=== PATIENT | female | born 1985 | race African-American/Black ===

== ENCOUNTER 2021-04-06 09:17 | Emergency (ER) | payer MEDICAID ==
[~2021-04-06] VITALS: Ht 157.5 cm; Wt 77.5 kg
[2021-04-06] MEDS ORDERED: albuterol (09:40)
[2021-04-06] MEDS ORDERED: ONDANSETRON 4MG ODT PO STA (10:27)
[2021-04-06] MEDS ORDERED: ACETAMINOPHEN 325MG TABLET PO STA (10:27)
[2021-04-06] MEDS ORDERED: SODIUM CHLORIDE 0.9% 1,000 ML IV ONE (11:00)
[2021-04-06 11:22] LABS: CLARITY URINE CLOUDY (CLEAR); COLOR URINE DARK YELLOW (YELLOW); KETONES URINE 2+ (NEGATIVE); LEUKOCYTE ESTERASE URINE 2+ (NEGATIVE); NITRITE URINE POSITIVE (NEGATIVE); OCCULT BLOOD URINE NEGATIVE (NEGATIVE); PH URINE 6.5 (4.5-8.0); PROTEIN URINE 3+ (NEGATIVE); SPECIFIC GRAVITY URINE 1.035 (1.005-1.030)
[2021-04-06 11:24] LABS: BASOPHILS % 0.5 % (0.0-2.0); HEMOGLOBIN. 14.6 g/dL (12.0-16.0); LYMPHOCYTES % 8.3 % (20.0-50.0); MEAN CORPUSCULAR HEMOGLOBIN 34.8 pg (28.0-32.0); MEAN CORPUSCULAR VOLUME 102.4 fL (81.0-99.0); MEAN PLATELET VOLUME 9.4 fl (7.4-10.4); MONOCYTES % 4.4 % (2.0-8.0); NEUTROPHILS % 86.8 % (40.0-76.0); PLATELET 205 x1000/uL (130-400); RED CELL DISTRIBUTION WIDTH 13.1 % (11.6-14.6)
[2021-04-06 11:27] LABS: CHLORIDE 98 mEq/L (98-107)
[2021-04-06] MEDS ORDERED: NITR-87 MT (11:50)
[2021-04-06] MEDS ORDERED: ONDA4TAB11 PO (11:50)
[2021-04-06] MEDS ORDERED: BENZ-16 MT (11:50)
[2021-04-06] MEDS ORDERED: ALBU6.7H9 INH (11:50)
[2021-04-06 13:00] VITALS: BP 112/72
== END 2021-04-06 13:14 | disposition home or self-care (01) ==
LOC: ER 09:27
DX: U07.1 COVID-19 (principal); N39.0 Urinary tract infection, site not specified; J06.9 Acute upper respiratory infection, unspecified; J45.909 Unspecified asthma, uncomplicated; Z88.0 Allergy status to penicillin
CPT/HCPCS: 36415; 71045; 80048; 81003; 81025; 83690; 85025; 93005; 96360; 99285; C9803; J7030; Q0162; U0003; U0005; Z7610

== ENCOUNTER 2021-08-03 09:00 | Emergency (ER) | payer MEDICAID, OTHER ==
[~2021-08-03] VITALS: Ht 167.6 cm; Wt 82.0 kg
[~2021-08-03 09:00] MED LIST: ALBU6.7H9 INH; BENZ-16 MT; NITR-87 MT; ONDA4TAB11 PO; albuterol
[2021-08-03 09:03] VITALS: BP 141/108
== END 2021-08-03 09:27 | disposition left against medical advice (07) ==
LOC: ER 09:00
DX: Z53.21 Procedure and treatment not carried out due to patient leaving prior to being seen by health care provider (principal)

== ENCOUNTER 2021-08-15 18:04 | Emergency (ER) | payer OTHER ==
[~2021-08-15] VITALS: Ht 157.5 cm; Wt 77.0 kg
[2021-08-15 18:46] VITALS: BP 127/83
[2021-08-15] MEDS ORDERED: BENZ-16 MT (19:36)
[2021-08-15] MEDS ORDERED: ALBU6.7H9 INH (20:25)
== END 2021-08-15 19:56 | disposition home or self-care (01) ==
LOC: ER 18:04
DX: R05.9 Cough, unspecified (principal); B34.9 Viral infection, unspecified; J45.909 Unspecified asthma, uncomplicated; Z88.0 Allergy status to penicillin; Z20.822 Contact with and (suspected) exposure to COVID-19
CPT/HCPCS: 71045; 87426; 93005; 99285

== ENCOUNTER 2021-09-23 13:40 | Emergency (ER) | payer MEDICAID ==
[~2021-09-23] VITALS: Ht 157.5 cm; Wt 70.0 kg
[2021-09-23] MEDS ORDERED: AZITHROMYCIN 500 MG TABLET PO ONE (16:45)
[2021-09-23] MEDS ORDERED: LIDOCAINE HCL 1% 20ML VIAL (Pyxis) INJ INFIL ONE (16:45)
[2021-09-23] MEDS ORDERED: FAMOTIDINE 20MG TABLET PO ONE (16:45)
[2021-09-23] MEDS ORDERED: CEFTRIAXONE SODIUM 500 MG/VIAL IM ONE (16:45)
[2021-09-23] MEDS ORDERED: PREDNISONE 20MG TABLET PO STA (16:50)
[2021-09-23] MEDS ORDERED: IPRATROPIUM BROMIDE (0.02%) 0.5MG/2.5ML NEB HHN STA (16:50)
[2021-09-23] MEDS ORDERED: ALBUTEROL (0.083%) 2.5MG/3ML NEB HHN STA (16:50)
[2021-09-23] MEDS ORDERED: ONDANSETRON 4MG ODT PO ONE (17:00)
[2021-09-23 17:10] LABS: CLARITY URINE CLOUDY (CLEAR); COLOR URINE DARK YELLOW (YELLOW); KETONES URINE TRACE (NEGATIVE); LEUKOCYTE ESTERASE URINE 1+ (NEGATIVE); NITRITE URINE POSITIVE (NEGATIVE); OCCULT BLOOD URINE NEGATIVE (NEGATIVE); PROTEIN URINE 1+ (NEGATIVE); SPECIFIC GRAVITY URINE 1.024 (1.005-1.030)
[2021-09-23 17:37] LABS: *AMPHETAMINES SCREEN URINE NEGATIVE (NEGATIVE); *BARBITURATES SCREEN URINE NEGATIVE (NEGATIVE); *BENZODIAZEPINES SCREEN URINE NEGATIVE (NEGATIVE); METHADONE URINE SCREEN NEGATIVE (NEGATIVE); OPIATES URINE SCREEN NEGATIVE (NEGATIVE); PHENCYCLIDINE URINE SCREEN NEGATIVE (NEGATIVE)
[2021-09-23 17:38] LABS: *COCAINE SCREEN URINE NEGATIVE (NEGATIVE); CANNABINOID URINE SCREEN PRESUMTIVE POSITIVE (NEGATIVE)
[2021-09-23 18:08] LABS: BASOPHILS % 0.9 % (0.0-2.0); EOSINOPHILS % 0.1 % (0.0-5.0); HEMATOCRIT. 39.2 % (36.0-48.0); HEMOGLOBIN. 13.5 g/dL (12.0-16.0); LYMPHOCYTES % 20.3 % (20.0-50.0); MEAN CORPUSCULAR HEMOGLOBIN 34.5 pg (28.0-32.0); MEAN CORPUSCULAR VOLUME 100.1 fL (81.0-99.0); MEAN PLATELET VOLUME 8.4 fl (7.4-10.4); MONOCYTES % 5.8 % (2.0-8.0); NEUTROPHILS % 72.9 % (40.0-76.0); PLATELET 389 x1000/uL (130-400); RED BLOOD CELL COUNT 3.91 mill/uL (4.2-5.4); RED CELL DISTRIBUTION WIDTH 14.1 % (11.6-14.6)
[2021-09-23 18:12] LABS: CHLORIDE 102 mEq/L (98-107)
[2021-09-23 18:18] LABS: ETHANOL BLOOD 259 mg/dL
[2021-09-23] MEDS ORDERED: NITR-87 MT (19:13)
[2021-09-23] MEDS ORDERED: ONDA4TAB11 PO (19:13)
[2021-09-23] MEDS ORDERED: ALBU6.7H15 INH (19:13)
[2021-09-23] MEDS ORDERED: P20 MT (19:13)
[2021-09-23 20:44] VITALS: BP 127/73
[2021-09-29 04:08] LABS: NEISSERIA GONORRHOEAE NAA Positive (Negative)
== END 2021-09-23 21:06 | disposition home or self-care (01) ==
LOC: ER 13:40
DX: R10.9 Unspecified abdominal pain (principal); R07.9 Chest pain, unspecified; J45.901 Unspecified asthma with (acute) exacerbation; N39.0 Urinary tract infection, site not specified; F10.129 Alcohol abuse with intoxication, unspecified; Y90.8 Blood alcohol level of 240 mg/100 ml or more; Z88.0 Allergy status to penicillin
CPT/HCPCS: 36415; 71045; 80053; 80305; 80320; 81003; 81025; 83690; 85025; 87491; 87591; 93005; 94640; 96372; 99285; J0696; J3490; J7512; Q0162; Z7610; G0480

== ENCOUNTER 2022-05-26 16:10 | Emergency (ER) | payer MEDICAID, OTHER ==
[~2022-05-26] VITALS: Ht 167.6 cm; Wt 77.0 kg
[~2022-05-26 16:10] MED LIST changes: +ALBU6.7H15 INH; +ALBU6.7H3 INH; -ALBU6.7H9 INH; +P20 MT
[2022-05-26 16:14] VITALS: BP 116/74
== END 2022-05-26 21:16 | disposition left against medical advice (07) ==
LOC: ER 16:10
DX: Z53.21 Procedure and treatment not carried out due to patient leaving prior to being seen by health care provider (principal); J45.909 Unspecified asthma, uncomplicated; Z88.0 Allergy status to penicillin; Z90.49 Acquired absence of other specified parts of digestive tract

== ENCOUNTER 2022-05-26 22:41 | Inpatient (IN) | payer MEDICAID, OTHER ==
[~2022-05-26] VITALS: Ht 157.5 cm; Wt 59.6 kg
[2022-05-27 01:11] LABS: BASOPHILS % 0.6 % (0.0-2.0); EOSINOPHILS % 1.3 % (0.0-5.0); HEMOGLOBIN. 10.8 g/dL (12.0-16.0); LYMPHOCYTES % 22.6 % (20.0-50.0); MEAN CORPUSCULAR HEMOGLOBIN 37.8 pg (28.0-32.0); MEAN CORPUSCULAR VOLUME 108.8 fL (81.0-99.0); MEAN PLATELET VOLUME 9.3 fl (7.4-10.4); MONOCYTES % 8.3 % (2.0-8.0); NEUTROPHILS % 67.2 % (40.0-76.0); PLATELET 196 x1000/uL (130-400); RED BLOOD CELL COUNT 2.85 mill/uL (4.2-5.4); RED CELL DISTRIBUTION WIDTH 17.9 % (11.6-14.6)
[2022-05-27 01:21] LABS: CHLORIDE 106 mEq/L (98-107)
[2022-05-27] MEDS ORDERED: KETOROLAC 30MG/ML VIAL IV STA (01:34)
[2022-05-27] MEDS ORDERED: SODIUM CHLORIDE 0.9% 1,000 ML IV ONE (01:45)
[2022-05-27] MEDS ORDERED: MAGNESIUM 2 G PREMIX 50 ML IV ONE (03:15)
[2022-05-27] MEDS ORDERED: KCL 20MEQ/100ML PREMIX 100 ML IV ONE (03:15)
[2022-05-27] MEDS ORDERED: POTASSIUM CHLORIDE 20MEQ TABLET SR PO ONE (03:15)
[2022-05-27] MEDS ORDERED: POTASSIUM CHLORIDE 20MEQ TABLET SR PO NR ×2 (03:45→19:30)
[2022-05-27 09:00] VITALS: BP_SYST 125; BP_DIAS 29; BP_DIAS 39
[2022-05-27 09:01] LABS: CLARITY URINE CLEAR (CLEAR); COLOR URINE DARK YELLOW (YELLOW); KETONES URINE NEGATIVE (NEGATIVE); LEUKOCYTE ESTERASE URINE TRACE (NEGATIVE); NITRITE URINE NEGATIVE (NEGATIVE); OCCULT BLOOD URINE 3+ (NEGATIVE); PH URINE 7.5 (4.5-8.0); PROTEIN URINE 1+ (NEGATIVE); SPECIFIC GRAVITY URINE 1.007 (1.005-1.030)
[2022-05-27 12:00] VITALS: BP 91/57
[2022-05-27] MEDS: ENOXAPARIN 40MG/0.4ML SYR SUBCUT SCH ×2 (12:00→12:39)
[2022-05-27] MEDS ORDERED: DOCUSATE SODIUM 100MG CAPSULE PO PRN (12:00)
[2022-05-27] MEDS ORDERED: IPRATROPIUM/ALBUTEROL 0.5-3(2.5)MG/3ML NEB HHN PRN (12:00)
[2022-05-27] MEDS ORDERED: CLONIDINE 0.1MG TABLET PO PRN (12:00)
[2022-05-27] MEDS ORDERED: ACETAMINOPHEN 325MG TABLET PO PRN (12:00)
[2022-05-27] MEDS ORDERED: DEXT 5%/0.9% NACL 1,000 ML IV SCH (12:00)
[2022-05-27] MEDS ORDERED: GUAIFENESIN 200MG/10ML SUGAR FREE UDC PO PRN (12:00)
[2022-05-27] MEDS ORDERED: NALOXONE HCL 0.4MG/ML VIAL IV PRN (12:30)
[2022-05-27] MEDS: ONDANSETRON HCL 4MG/2ML INJ IV PRN ×2 (12:39→20:02)
[2022-05-27] MEDS: HYDROCODONE/ACETAMINOPHEN 5/325MG TABLET PO PRN ×2 (13:21→21:18)
[2022-05-27] MEDS: SODIUM CHLORIDE 0.45% 1,000 ML IV SCH ×2 (14:57→19:58)
[2022-05-27 16:00] VITALS: BP 105/65
[2022-05-27 18:16] LABS: BASOPHILS % 0.3 % (0.0-2.0); EOSINOPHILS % 0.5 % (0.0-5.0); HEMATOCRIT. 28.7 % (36.0-48.0); HEMOGLOBIN. 9.6 g/dL (12.0-16.0); LYMPHOCYTES % 10.6 % (20.0-50.0); MEAN CORPUSCULAR HEMOGLOBIN 37.7 pg (28.0-32.0); MEAN CORPUSCULAR VOLUME 112.5 fL (81.0-99.0); MEAN PLATELET VOLUME 9.8 fl (7.4-10.4); MONOCYTES % 5.5 % (2.0-8.0); NEUTROPHILS % 83.1 % (40.0-76.0); PLATELET 184 x1000/uL (130-400); RED BLOOD CELL COUNT 2.55 mill/uL (4.2-5.4)
[2022-05-27 18:51] LABS: CHLORIDE 108 mEq/L (98-107)
[2022-05-27 19:01] LABS: PHOSPHORUS 2.7 mg/dL (2.5-4.9)
[2022-05-27 20:00] VITALS: BP 106/72
[2022-05-27] MEDS: MAGNESIUM/ALUMINUM HYDROXIDE/SIMETHICONE 30ML UDC PO PRN (21:17)
[2022-05-27 22:14] LABS: VITAMIN B12 SERUM 1390 pg/mL (211-911)
[2022-05-28 00:05] VITALS: BP 107/76
[2022-05-28] MEDS: DIPHENHYDRAMINE 50MG/ML VIAL IV PRN ×2 (02:47→23:55)
[2022-05-28] MEDS: SODIUM CHLORIDE 0.45% 1,000 ML IV SCH ×2 (02:51→10:15)
[2022-05-28 04:00] VITALS: BP 108/74
[2022-05-28 05:17] LABS: PLATELET ESTIMATE NORMAL
[2022-05-28 08:17] LABS: BASOPHILS % 0.4 % (0.0-2.0); EOSINOPHILS % 1.1 % (0.0-5.0); HEMATOCRIT. 26.5 % (36.0-48.0); HEMOGLOBIN. 8.7 g/dL (12.0-16.0); LYMPHOCYTES % 17.6 % (20.0-50.0); MEAN CORPUSCULAR HEMOGLOBIN 38.6 pg (28.0-32.0); MEAN CORPUSCULAR VOLUME 117.2 fL (81.0-99.0); MONOCYTES % 6.6 % (2.0-8.0); NEUTROPHILS % 74.3 % (40.0-76.0); PLATELET 152 x1000/uL (130-400); RED BLOOD CELL COUNT 2.26 mill/uL (4.2-5.4); RED CELL DISTRIBUTION WIDTH 18.9 % (11.6-14.6)
[2022-05-28 09:16] LABS: CHLORIDE 106 mEq/L (98-107)
[2022-05-28 09:34] LABS: HDL CHOLESTEROL 13 mg/dL (40-59); LDL CHOLESTEROL 98 mg/dL (5-100); T4 FREE 1.17 ng/dL (0.76-1.46)
[2022-05-28 10:00] LABS: HEPATITIS B SURFACE ANTIGEN NEGATIVE
[2022-05-28] MEDS: ONDANSETRON HCL 4MG/2ML INJ IV PRN ×2 (11:00→17:56)
[2022-05-28] MEDS: MAGNESIUM/ALUMINUM HYDROXIDE/SIMETHICONE 30ML UDC PO PRN (11:00)
[2022-05-28] MEDS: HYDROCODONE/ACETAMINOPHEN 5/325MG TABLET PO PRN ×3 (11:01→23:55)
[2022-05-28] MEDS ORDERED: POTASSIUM CHLORIDE 20MEQ TABLET SR PO NR (11:15)
[2022-05-28 12:00] VITALS: BP 112/50
[2022-05-28] MEDS ORDERED: KCL 20MEQ/100ML PREMIX 100 ML IV SCH (12:00)
[2022-05-28] MEDS: ENOXAPARIN 40MG/0.4ML SYR SUBCUT SCH (12:10)
[2022-05-28] MEDS ORDERED: POTASSIUM CHLORIDE 20MEQ TABLET SR PO SCH (13:15)
[2022-05-28 16:00] VITALS: BP 115/58
[2022-05-28] MEDS: FOLIC ACID 1MG TABLET PO SCH (17:05)
[2022-05-28 20:00] VITALS: BP 101/65
[2022-05-29] VITALS: BP 120/75
[2022-05-29 04:00] VITALS: BP 126/80
[2022-05-29] MEDS: FOLIC ACID 1MG TABLET PO SCH (07:50)
[2022-05-29] MEDS: ONDANSETRON HCL 4MG/2ML INJ IV PRN ×2 (07:50→21:00)
[2022-05-29] MEDS: DIPHENHYDRAMINE 50MG/ML VIAL IV PRN (07:50)
[2022-05-29 08:00] VITALS: BP 109/76
[2022-05-29] MEDS ORDERED: POTASSIUM CHLORIDE 20MEQ TABLET SR PO SCH (08:00)
[2022-05-29 12:00] VITALS: BP 108/73
[2022-05-29] MEDS: ENOXAPARIN 40MG/0.4ML SYR SUBCUT SCH (12:55)
[2022-05-29] MEDS: SERTRALINE HCL 25MG TABLET PO SCH (12:55)
[2022-05-29] MEDS: MAGNESIUM/ALUMINUM HYDROXIDE/SIMETHICONE 30ML UDC PO PRN (14:45)
[2022-05-29 16:00] VITALS: BP 95/54
[2022-05-29 20:00] VITALS: BP 101/65
[2022-05-29] MEDS: RISPERIDONE 1MG TABLET PO SCH ×2 (21:48→22:04)
[2022-05-29 22:02] LABS: CHLORIDE 106 mEq/L (98-107); HEMOGLOBIN 8.6 g/dL (12.0-16.0); RED BLOOD CELL COUNT 2.23 mill/uL (4.2-5.4)
[2022-05-29 22:06] LABS: MEAN CORPUSCULAR HEMOGLOBIN 38.5 pg (28.0-32.0); MEAN CORPUSCULAR VOLUME 112.2 fL (81.0-99.0); PLATELET 169 x1000/uL (130-400); RED CELL DISTRIBUTION WIDTH 17.6 % (11.6-14.6)
[2022-05-29] MEDS: HYDROCODONE/ACETAMINOPHEN 5/325MG TABLET PO PRN (23:08)
[2022-05-30] VITALS: BP 118/74
[2022-05-30] MEDS: DIPHENHYDRAMINE 50MG/ML VIAL IV PRN ×2 (02:19→08:28)
[2022-05-30 04:00] VITALS: BP 112/63
[2022-05-30 08:00] VITALS: BP 120/79
[2022-05-30] MEDS ORDERED: POTASSIUM CHLORIDE 20MEQ TABLET SR PO NR ×2 (08:15)
[2022-05-30] MEDS: FOLIC ACID 1MG TABLET PO SCH (08:27)
[2022-05-30] MEDS: SERTRALINE HCL 25MG TABLET PO SCH (08:28)
[2022-05-30 11:00] LABS: HEMATOCRIT 25.5 % (36.0-48.0); HEMOGLOBIN 8.5 g/dL (12.0-16.0); MEAN CORPUSCULAR HEMOGLOBIN 38.1 pg (28.0-32.0); MEAN CORPUSCULAR VOLUME 114.4 fL (81.0-99.0); PLATELET 160 x1000/uL (130-400); RED BLOOD CELL COUNT 2.23 mill/uL (4.2-5.4); RED CELL DISTRIBUTION WIDTH 17.7 % (11.6-14.6)
[2022-05-30] MEDS: ONDANSETRON HCL 4MG/2ML INJ IV PRN ×2 (11:31→20:51)
[2022-05-30] MEDS: ENOXAPARIN 40MG/0.4ML SYR SUBCUT SCH (11:32)
[2022-05-30 12:00] VITALS: BP 110/72
[2022-05-30 13:40] LABS: CHLORIDE 105 mEq/L (98-107); PHOSPHORUS 1.1 mg/dL (2.5-4.9)
[2022-05-30 16:00] VITALS: BP 100/65
[2022-05-30] MEDS: POTASSIUM-SODIUM PHOSPHATE POWDER PACKET PO SCH ×2 (16:48→17:01)
[2022-05-30] MEDS: MAGNESIUM/ALUMINUM HYDROXIDE/SIMETHICONE 30ML UDC PO PRN (17:00)
[2022-05-30 20:00] VITALS: BP 103/64
[2022-05-30] MEDS: RISPERIDONE 1MG TABLET PO SCH (20:50)
[2022-05-31] VITALS: BP 101/68
[2022-05-31] MEDS: DIPHENHYDRAMINE 50MG/ML VIAL IV PRN (01:43)
[2022-05-31 04:00] VITALS: BP 107/61
[2022-05-31 08:00] VITALS: BP 99/53
[2022-05-31] MEDS ORDERED: SERTRALINE HCL 25MG TABLET PO SCH (09:00)
[2022-05-31] MEDS: FOLIC ACID 1MG TABLET PO SCH (09:05)
[2022-05-31] MEDS: POTASSIUM-SODIUM PHOSPHATE POWDER PACKET PO SCH (09:05)
[2022-05-31 12:00] VITALS: BP 102/70
[2022-05-31] MEDS: MAGNESIUM/ALUMINUM HYDROXIDE/SIMETHICONE 30ML UDC PO PRN (12:37)
[2022-05-31] MEDS: ENOXAPARIN 40MG/0.4ML SYR SUBCUT SCH (12:37)
[2022-05-31 12:38] VITALS: BP 99/53
[2022-05-31] MEDS: ONDANSETRON HCL 4MG/2ML INJ IV PRN (12:38)
[2022-05-31] MEDS: HYDROCODONE/ACETAMINOPHEN 5/325MG TABLET PO PRN (12:38)
[2022-06-01] MEDS ORDERED: GABAPETIN (02:46)
[2022-06-01] MEDS ORDERED: trazodone (02:47)
[2022-06-01] MEDS ORDERED: colace (02:47)
== END 2022-05-31 15:40 | disposition left against medical advice (07) | DRG 282 ==
LOC: ER 22:41 → EDBEDREQ 05-27 04:26 → ENRESERV 05-27 06:59 → 7WST 05-27 08:36
PROVIDERS: ADMIT Internal Medicine; ATTEND Internal Medicine
DX: K85.90 Acute pancreatitis without necrosis or infection, unspecified (principal); R65.11 Systemic inflammatory response syndrome (SIRS) of non-infectious origin with acute organ dysfunction; E87.20 Acidosis, unspecified; E44.0 Moderate protein-calorie malnutrition; D53.9 Nutritional anemia, unspecified; E87.6 Hypokalemia; E83.42 Hypomagnesemia; R79.89 Other specified abnormal findings of blood chemistry; J45.909 Unspecified asthma, uncomplicated; I10 Essential (primary) hypertension; D72.829 Elevated white blood cell count, unspecified; R74.01 Elevation of levels of liver transaminase levels; G62.9 Polyneuropathy, unspecified; F41.9 Anxiety disorder, unspecified; F17.200 Nicotine dependence, unspecified, uncomplicated; F10.10 Alcohol abuse, uncomplicated; F31.30 Bipolar disorder, current episode depressed, mild or moderate severity, unspecified; Z53.20 Procedure and treatment not carried out because of patient's decision for unspecified reasons; Z91.14 Patient's other noncompliance with medication regimen; Z68.24 Body mass index [BMI] 24.0-24.9, adult; Z88.0 Allergy status to penicillin; Z88.8 Allergy status to other drugs, medicaments and biological substances; Z79.899 Other long term (current) drug therapy
CPT/HCPCS: 36415; 71045; 74176; 80048; 80053; 80061; 80076; 81003; 82248; 82607; 82746; 82977; 83540; 83550; 83605; 83735; 84100; 84132; 84145; 84439; 84443; 84481; 84484; 85025; 85027; 86705; 86709; 86803; 87340; 93005; 97162; 97166; 99285; J1200; J1650; J1885; J2405; J3475; J3480; J7030

== ENCOUNTER 2022-05-31 15:54 | Inpatient (IN) | payer OTHER ==
[~2022-05-31] VITALS: Ht 157.5 cm; Wt 59.0 kg
[2022-05-31 19:31] LABS: BASOPHILS % 0.3 % (0.0-2.0); EOSINOPHILS % 0.8 % (0.0-5.0); HEMATOCRIT. 26.3 % (36.0-48.0); HEMOGLOBIN. 8.5 g/dL (12.0-16.0); LYMPHOCYTES % 18.1 % (20.0-50.0); MEAN CORPUSCULAR HEMOGLOBIN 38.9 pg (28.0-32.0); MEAN CORPUSCULAR VOLUME 120.2 fL (81.0-99.0); MEAN PLATELET VOLUME 8.6 fl (7.4-10.4); MONOCYTES % 7.8 % (2.0-8.0); PLATELET 172 x1000/uL (130-400); RED BLOOD CELL COUNT 2.19 mill/uL (4.2-5.4); RED CELL DISTRIBUTION WIDTH 18.5 % (11.6-14.6)
[2022-05-31 19:46] LABS: CHLORIDE 106 mEq/L (98-107)
[2022-05-31 19:56] LABS: HCG SCREEN NEGATIVE
[2022-05-31] MEDS ORDERED: POTASSIUM CHLORIDE 20MEQ/PACKET PO ONE (20:15)
[2022-06-01] MEDS ORDERED: GABAPETIN (02:46)
[2022-06-01] MEDS ORDERED: colace (02:47)
[2022-06-01] MEDS ORDERED: trazodone (02:47)
[2022-06-01 03:00] VITALS: BP 107/72
[2022-06-01 04:00] VITALS: BP 103/64
[2022-06-01] MEDS ORDERED: PANTOPRAZOLE 40MG DR TABLET PO SCH (07:20)
[2022-06-01 08:00] VITALS: BP 96/63
[2022-06-01] MEDS: PANTOPRAZOLE 40MG DR TABLET PO SCH (08:53)
[2022-06-01] MEDS: DOCUSATE SODIUM 250MG CAPSULE PO PRN (08:53)
[2022-06-01] MEDS: GABAPENTIN 300MG CAPSULE PO SCH ×3 (08:53→18:50)
[2022-06-01 08:59] LABS: BASOPHILS % 0.5 % (0.0-2.0); EOSINOPHILS % 2.2 % (0.0-5.0); HEMATOCRIT. 22.1 % (36.0-48.0); HEMOGLOBIN. 7.4 g/dL (12.0-16.0); LYMPHOCYTES % 17.8 % (20.0-50.0); MEAN CORPUSCULAR HEMOGLOBIN 37.6 pg (28.0-32.0); MEAN CORPUSCULAR VOLUME 111.7 fL (81.0-99.0); MEAN PLATELET VOLUME 8.7 fl (7.4-10.4); MONOCYTES % 10.6 % (2.0-8.0); NEUTROPHILS % 68.9 % (40.0-76.0); PLATELET 179 x1000/uL (130-400); RED BLOOD CELL COUNT 1.98 mill/uL (4.2-5.4); RED CELL DISTRIBUTION WIDTH 17.1 % (11.6-14.6)
[2022-06-01] MEDS: ONDANSETRON HCL 4MG/2ML INJ IV PRN ×2 (15:56→22:16)
[2022-06-01 20:00] VITALS: BP 101/65
[2022-06-01] MEDS: TRAZODONE HCL 50MG TABLET PO SCH (22:16)
[2022-06-02] VITALS: BP 101/67
[2022-06-02 04:00] VITALS: BP 92/57
[2022-06-02] MEDS: PANTOPRAZOLE 40MG DR TABLET PO SCH (06:33)
[2022-06-02 08:00] VITALS: BP 108/64
[2022-06-02] MEDS: ONDANSETRON HCL 4MG/2ML INJ IV PRN ×2 (09:00→21:51)
[2022-06-02] MEDS: GABAPENTIN 300MG CAPSULE PO SCH ×3 (09:00→16:34)
[2022-06-02 12:00] VITALS: BP 112/65
[2022-06-02 16:00] VITALS: BP 114/68
[2022-06-02 20:00] VITALS: BP 109/74
[2022-06-02] MEDS: TRAZODONE HCL 50MG TABLET PO SCH (21:00)
[2022-06-03] VITALS: BP 104/71
[2022-06-03] MEDS ORDERED: LORAZEPAM 1MG TABLET PO PRN (00:45)
[2022-06-03] MEDS ORDERED: NALOXONE HCL 0.4MG/ML VIAL IV PRN (01:00)
[2022-06-03] MEDS: HYDROCODONE/ACETAMINOPHEN 10/325MG TABLET PO PRN (01:03)
[2022-06-03 04:00] VITALS: BP 114/74
[2022-06-03] MEDS: PANTOPRAZOLE 40MG DR TABLET PO SCH (06:37)
[2022-06-03] MEDS: RISPERIDONE 1MG TABLET PO SCH ×2 (10:05→21:47)
[2022-06-03] MEDS: GABAPENTIN 300MG CAPSULE PO SCH ×3 (10:05→17:18)
[2022-06-03 20:00] VITALS: BP 110/68
[2022-06-03] MEDS: TRAZODONE HCL 50MG TABLET PO SCH (21:47)
[2022-06-04] VITALS: BP 106/73
[2022-06-04 04:00] VITALS: BP 102/65
[2022-06-04] MEDS: PANTOPRAZOLE 40MG DR TABLET PO SCH (07:09)
[2022-06-04 08:00] VITALS: BP 98/59
[2022-06-04 09:02] LABS: BASOPHILS % 0.1 % (0.0-2.0); EOSINOPHILS % 1.5 % (0.0-5.0); HEMATOCRIT. 22.1 % (36.0-48.0); HEMOGLOBIN. 7.3 g/dL (12.0-16.0); LYMPHOCYTES % 16.1 % (20.0-50.0); MEAN CORPUSCULAR HEMOGLOBIN 37.6 pg (28.0-32.0); MEAN CORPUSCULAR VOLUME 113.5 fL (81.0-99.0); MEAN PLATELET VOLUME 8.6 fl (7.4-10.4); MONOCYTES % 11.6 % (2.0-8.0); NEUTROPHILS % 70.7 % (40.0-76.0); PLATELET 230 x1000/uL (130-400); RED BLOOD CELL COUNT 1.95 mill/uL (4.2-5.4); RED CELL DISTRIBUTION WIDTH 16.7 % (11.6-14.6)
[2022-06-04] MEDS: RISPERIDONE 1MG TABLET PO SCH (09:17)
[2022-06-04] MEDS: GABAPENTIN 300MG CAPSULE PO SCH ×3 (09:17→18:07)
[2022-06-04 10:34] LABS: CHLORIDE 113 mEq/L (98-107)
[2022-06-04 10:48] LABS: CREATINE KINASE 51 IU/L (26-192); TOTAL IRON BINDING CAPACITY 146 ug/dL (250-450)
[2022-06-04 11:24] LABS: FOLIC ACID (FOLATE) SERUM 3.7 ng/mL (>5.38)
[2022-06-04 12:00] VITALS: BP 92/62
[2022-06-04] MEDS ORDERED: POTASSIUM CHLORIDE 20MEQ TABLET SR PO NR ×2 (14:00→16:42)
[2022-06-04] MEDS: LACTULOSE 20G/30ML UDC PO SCH ×2 (14:14→22:01)
[2022-06-04] MEDS ORDERED: POTASSIUM CHLORIDE INJ 40 MEQ in DEXT 5% WATER 500 ML IV NR (15:00)
[2022-06-04 16:29] VITALS: BP 107/59
[2022-06-04 17:41] LABS: CLARITY URINE CLOUDY (CLEAR); COLOR URINE DARK YELLOW (YELLOW); KETONES URINE NEGATIVE (NEGATIVE); LEUKOCYTE ESTERASE URINE 3+ (NEGATIVE); NITRITE URINE NEGATIVE (NEGATIVE); OCCULT BLOOD URINE NEGATIVE (NEGATIVE); PH URINE 7.5 (4.5-8.0); PROTEIN URINE TRACE (NEGATIVE); SPECIFIC GRAVITY URINE 1.009 (1.005-1.030)
[2022-06-04 17:44] LABS: *AMPHETAMINES SCREEN URINE NEGATIVE (NEGATIVE); *BARBITURATES SCREEN URINE NEGATIVE (NEGATIVE); *BENZODIAZEPINES SCREEN URINE NEGATIVE (NEGATIVE); *COCAINE SCREEN URINE NEGATIVE (NEGATIVE); METHADONE URINE SCREEN NEGATIVE (NEGATIVE); PHENCYCLIDINE URINE SCREEN NEGATIVE (NEGATIVE)
[2022-06-04 17:55] LABS: CANNABINOID URINE SCREEN PRESUMTIVE POSITIVE (NEGATIVE); OPIATES URINE SCREEN PRESUMTIVE POSITIVE (NEGATIVE)
[2022-06-04] MEDS: DULOXETINE HCL 20MG DR CAPSULE PO SCH (18:07)
[2022-06-04] MEDS: ONDANSETRON HCL 4MG/2ML INJ IV PRN (18:20)
[2022-06-04] MEDS: CEFTRIAXONE 1,000 MG in DEXTROSE 5% WATER 50 ML IV SCH ×2 (21:00→22:01)
[2022-06-04] MEDS: TRAZODONE HCL 50MG TABLET PO SCH (22:01)
[2022-06-04] MEDS: HYDROCODONE/ACETAMINOPHEN 10/325MG TABLET PO PRN (22:59)
[2022-06-05] VITALS: BP 97/67
[2022-06-05 04:00] VITALS: BP 98/66
[2022-06-05] MEDS: LACTULOSE 20G/30ML UDC PO SCH ×3 (06:03→20:45)
[2022-06-05] MEDS: HYDROCODONE/ACETAMINOPHEN 10/325MG TABLET PO PRN ×2 (06:03→22:41)
[2022-06-05 08:36] LABS: BASOPHILS % 0.2 % (0.0-2.0); EOSINOPHILS % 1.7 % (0.0-5.0); HEMATOCRIT. 22.3 % (36.0-48.0); HEMOGLOBIN. 7.4 g/dL (12.0-16.0); LYMPHOCYTES % 19.4 % (20.0-50.0); MEAN CORPUSCULAR HEMOGLOBIN 37.5 pg (28.0-32.0); MEAN CORPUSCULAR VOLUME 113.9 fL (81.0-99.0); MEAN PLATELET VOLUME 8.4 fl (7.4-10.4); MONOCYTES % 11.1 % (2.0-8.0); NEUTROPHILS % 67.6 % (40.0-76.0); PLATELET 248 x1000/uL (130-400); RED BLOOD CELL COUNT 1.96 mill/uL (4.2-5.4); RED CELL DISTRIBUTION WIDTH 16.7 % (11.6-14.6)
[2022-06-05] MEDS: FAMOTIDINE 20MG TABLET PO SCH ×2 (08:39→20:45)
[2022-06-05] MEDS: GABAPENTIN 300MG CAPSULE PO SCH ×3 (08:39→17:01)
[2022-06-05] MEDS: DULOXETINE HCL 20MG DR CAPSULE PO SCH (08:39)
[2022-06-05] MEDS: FOLIC ACID 1MG TABLET PO SCH (08:40)
[2022-06-05 08:54] LABS: CHLORIDE 115 mEq/L (98-107)
[2022-06-05] MEDS ORDERED: FOLIC ACID 1MG TABLET PO SCH (09:00)
[2022-06-05 09:03] LABS: AMYLASE 29 IU/L (25-115)
[2022-06-05] MEDS ORDERED: POTASSIUM CHLORIDE 20MEQ TABLET SR PO NR (10:45)
[2022-06-05 10:49] LABS: PLATELET ESTIMATE NORMAL
[2022-06-05] MEDS: ONDANSETRON HCL 4MG/2ML INJ IV PRN (13:05)
[2022-06-05 13:11] LABS: HEPATITIS B SURFACE ANTIGEN NEGATIVE
[2022-06-05 16:00] VITALS: BP 111/78
[2022-06-05] MEDS: CEFTRIAXONE 1,000 MG in DEXTROSE 5% WATER 50 ML IV SCH (20:45)
[2022-06-05] MEDS: TRAZODONE HCL 50MG TABLET PO SCH (20:45)
[2022-06-06] MEDS: LACTULOSE 20G/30ML UDC PO SCH ×4 (02:14→20:35)
[2022-06-06 07:39] LABS: BASOPHILS % 0.3 % (0.0-2.0); EOSINOPHILS % 2.1 % (0.0-5.0); HEMATOCRIT. 22.5 % (36.0-48.0); HEMOGLOBIN. 7.2 g/dL (12.0-16.0); LYMPHOCYTES % 18.8 % (20.0-50.0); MEAN CORPUSCULAR HEMOGLOBIN 36.7 pg (28.0-32.0); MEAN CORPUSCULAR VOLUME 114.5 fL (81.0-99.0); MEAN PLATELET VOLUME 8.3 fl (7.4-10.4); MONOCYTES % 11.9 % (2.0-8.0); NEUTROPHILS % 66.9 % (40.0-76.0); PLATELET 250 x1000/uL (130-400); RED BLOOD CELL COUNT 1.97 mill/uL (4.2-5.4); RED CELL DISTRIBUTION WIDTH 16.9 % (11.6-14.6)
[2022-06-06 07:53] LABS: CHLORIDE 117 mEq/L (98-107)
[2022-06-06 08:00] VITALS: BP 92/54
[2022-06-06] MEDS: FAMOTIDINE 20MG TABLET PO SCH ×2 (08:45→20:36)
[2022-06-06] MEDS: DULOXETINE HCL 20MG DR CAPSULE PO SCH (08:45)
[2022-06-06] MEDS: GABAPENTIN 300MG CAPSULE PO SCH ×3 (08:45→18:09)
[2022-06-06] MEDS: FOLIC ACID 1MG TABLET PO SCH (08:45)
[2022-06-06] MEDS ORDERED: POTASSIUM CHLORIDE 20MEQ TABLET SR PO NR (10:45)
[2022-06-06 12:00] VITALS: BP 106/62
[2022-06-06] MEDS: ONDANSETRON HCL 4MG/2ML INJ IV PRN ×2 (12:47→21:21)
[2022-06-06] MEDS: TRAZODONE HCL 50MG TABLET PO SCH (13:06)
[2022-06-06] MEDS ORDERED: FOLIC ACID 1MG TABLET PO SCH (14:15)
[2022-06-06 16:00] VITALS: BP 111/62
[2022-06-06 20:00] VITALS: BP 105/65
[2022-06-06] MEDS: CEFTRIAXONE 1,000 MG in DEXTROSE 5% WATER 50 ML IV SCH (20:36)
[2022-06-06] MEDS: RIFAXIMIN 550 MG TABLET PO SCH (20:36)
[2022-06-06] MEDS: HYDROCODONE/ACETAMINOPHEN 10/325MG TABLET PO PRN (22:27)
[2022-06-06] MEDS: POTASSIUM CHLORIDE INJ 30 MEQ in DEXT 5%/0.45% NACL 1000ML 1,000 ML IV SCH (23:49)
[2022-06-07] VITALS (8 sets, daily range): BP systolic 100–134; BP diastolic 56–83
[2022-06-07] MEDS: LACTULOSE 20G/30ML UDC PO SCH ×4 (02:00→21:27)
[2022-06-07 04:25] LABS: BASOPHILS % 0.4 % (0.0-2.0); EOSINOPHILS % 1.7 % (0.0-5.0); HEMATOCRIT. 21.9 % (36.0-48.0); HEMOGLOBIN. 7.1 g/dL (12.0-16.0); LYMPHOCYTES % 18.3 % (20.0-50.0); MEAN CORPUSCULAR HEMOGLOBIN 36.6 pg (28.0-32.0); MEAN CORPUSCULAR VOLUME 113.4 fL (81.0-99.0); MEAN PLATELET VOLUME 8.4 fl (7.4-10.4); MONOCYTES % 10.5 % (2.0-8.0); NEUTROPHILS % 69.1 % (40.0-76.0); PLATELET 249 x1000/uL (130-400); RED BLOOD CELL COUNT 1.94 mill/uL (4.2-5.4); RED CELL DISTRIBUTION WIDTH 16.5 % (11.6-14.6)
[2022-06-07 04:41] LABS: INR 1.3; PROTHROMBIN TIME 13.5 sec (9.6-11.0)
[2022-06-07 06:19] LABS: PLATELET ESTIMATE NORMAL
[2022-06-07] MEDS: FAMOTIDINE 20MG TABLET PO SCH ×2 (09:00→21:27)
[2022-06-07] MEDS: DULOXETINE HCL 20MG DR CAPSULE PO SCH ×2 (09:00→17:53)
[2022-06-07] MEDS: GABAPENTIN 300MG CAPSULE PO SCH ×3 (09:00→17:53)
[2022-06-07] MEDS: RIFAXIMIN 550 MG TABLET PO SCH ×2 (09:00→17:54)
[2022-06-07] MEDS: FOLIC ACID 1MG TABLET PO SCH ×2 (09:00→17:54)
[2022-06-07 14:45] LABS: CHLORIDE 114 mEq/L (98-107)
[2022-06-07] MEDS: DOCUSATE SODIUM 250MG CAPSULE PO PRN (17:53)
[2022-06-07] MEDS: HYDROCODONE/ACETAMINOPHEN 10/325MG TABLET PO PRN (17:55)
[2022-06-07] MEDS: ONDANSETRON HCL 4MG/2ML INJ IV PRN (18:49)
[2022-06-07] MEDS: CEFTRIAXONE 1,000 MG in DEXTROSE 5% WATER 50 ML IV SCH (21:27)
[2022-06-07] MEDS: TRAZODONE HCL 50MG TABLET PO SCH (21:27)
[2022-06-08] VITALS: BP 114/66
[2022-06-08 00:29] VITALS: BP 114/66
[2022-06-08 01:29] VITALS: BP 126/88
[2022-06-08] MEDS: POTASSIUM CHLORIDE INJ 30 MEQ in DEXT 5%/0.45% NACL 1000ML 1,000 ML IV SCH (01:29)
[2022-06-08] MEDS: LACTULOSE 20G/30ML UDC PO SCH ×4 (02:00→20:09)
[2022-06-08 04:00] VITALS: BP 110/81
[2022-06-08] MEDS: HYDROCODONE/ACETAMINOPHEN 10/325MG TABLET PO PRN ×2 (06:55→23:34)
[2022-06-08 07:48] LABS: INR 1.3; PROTHROMBIN TIME 13.5 sec (9.6-11.0)
[2022-06-08 07:55] LABS: BASOPHILS % 0.6 % (0.0-2.0); EOSINOPHILS % 1.4 % (0.0-5.0); HEMATOCRIT. 26.6 % (36.0-48.0); HEMOGLOBIN. 8.6 g/dL (12.0-16.0); LYMPHOCYTES % 18.8 % (20.0-50.0); MEAN CORPUSCULAR HEMOGLOBIN 34.6 pg (28.0-32.0); MEAN CORPUSCULAR VOLUME 106.8 fL (81.0-99.0); MEAN PLATELET VOLUME 8.6 fl (7.4-10.4); MONOCYTES % 11.1 % (2.0-8.0); NEUTROPHILS % 68.1 % (40.0-76.0); PLATELET 201 x1000/uL (130-400); RED BLOOD CELL COUNT 2.49 mill/uL (4.2-5.4); RED CELL DISTRIBUTION WIDTH 20.5 % (11.6-14.6)
[2022-06-08 08:48] LABS: CHLORIDE 115 mEq/L (98-107)
[2022-06-08] MEDS: GABAPENTIN 300MG CAPSULE PO SCH ×3 (09:00→18:26)
[2022-06-08] MEDS: FAMOTIDINE 20MG TABLET PO SCH ×2 (09:00→20:09)
[2022-06-08] MEDS: RIFAXIMIN 550 MG TABLET PO SCH ×2 (09:02→20:23)
[2022-06-08] MEDS ORDERED: PROPOFOL 200MG/20ML VIAL IV ONE (15:39)
[2022-06-08] MEDS ORDERED: SODIUM CHLORIDE 0.9% 1,000 ML IV SCH (17:30)
[2022-06-08] MEDS: CEFTRIAXONE 1,000 MG in DEXTROSE 5% WATER 50 ML IV SCH (20:09)
[2022-06-08] MEDS: TRAZODONE HCL 50MG TABLET PO SCH (20:09)
[2022-06-08 20:42] VITALS: BP 110/78
[2022-06-09 00:25] VITALS: BP 108/83
[2022-06-09] MEDS: LACTULOSE 20G/30ML UDC PO SCH ×4 (02:00→20:46)
[2022-06-09 04:00] VITALS: BP 94/60
[2022-06-09] MEDS: POTASSIUM CHLORIDE INJ 30 MEQ in DEXT 5%/0.45% NACL 1000ML 1,000 ML IV SCH (04:28)
[2022-06-09 08:00] VITALS: BP 110/82
[2022-06-09 08:11] LABS: BASOPHILS % 0.8 % (0.0-2.0); EOSINOPHILS % 1.1 % (0.0-5.0); HEMATOCRIT. 25.8 % (36.0-48.0); HEMOGLOBIN. 8.5 g/dL (12.0-16.0); LYMPHOCYTES % 20.6 % (20.0-50.0); MEAN CORPUSCULAR HEMOGLOBIN 35.5 pg (28.0-32.0); MEAN CORPUSCULAR VOLUME 107.5 fL (81.0-99.0); MEAN PLATELET VOLUME 8.5 fl (7.4-10.4); MONOCYTES % 10.9 % (2.0-8.0); NEUTROPHILS % 66.6 % (40.0-76.0); PLATELET 190 x1000/uL (130-400); RED BLOOD CELL COUNT 2.41 mill/uL (4.2-5.4); RED CELL DISTRIBUTION WIDTH 20.3 % (11.6-14.6)
[2022-06-09] MEDS: DULOXETINE HCL 20MG DR CAPSULE PO SCH (08:56)
[2022-06-09] MEDS: FOLIC ACID 1MG TABLET PO SCH (08:56)
[2022-06-09] MEDS: GABAPENTIN 300MG CAPSULE PO SCH ×3 (08:56→18:29)
[2022-06-09] MEDS: RIFAXIMIN 550 MG TABLET PO SCH ×2 (08:56→20:46)
[2022-06-09] MEDS: FAMOTIDINE 20MG TABLET PO SCH ×2 (08:56→20:46)
[2022-06-09 09:52] LABS: CHLORIDE 118 mEq/L (98-107)
[2022-06-09 12:00] VITALS: BP 110/74
[2022-06-09] MEDS: ONDANSETRON HCL 4MG/2ML INJ IV PRN (14:57)
[2022-06-09] MEDS: HYDROCODONE/ACETAMINOPHEN 10/325MG TABLET PO PRN ×2 (14:57→20:49)
[2022-06-09] MEDS ORDERED: NALOXONE HCL 0.4MG/ML VIAL IV PRN (18:45)
[2022-06-09 20:00] VITALS: BP 110/72
[2022-06-09] MEDS: TRAZODONE HCL 50MG TABLET PO SCH (20:46)
[2022-06-10] VITALS: BP 112/74
[2022-06-10] MEDS: LACTULOSE 20G/30ML UDC PO SCH ×3 (02:00→14:16)
[2022-06-10] MEDS: ONDANSETRON HCL 4MG/2ML INJ IV PRN (02:19)
[2022-06-10] MEDS: HYDROCODONE/ACETAMINOPHEN 10/325MG TABLET PO PRN ×3 (02:21→14:17)
[2022-06-10 04:00] VITALS: BP 110/75
[2022-06-10 08:00] VITALS: BP 106/69
[2022-06-10] MEDS: DULOXETINE HCL 20MG DR CAPSULE PO SCH (09:31)
[2022-06-10] MEDS: FOLIC ACID 1MG TABLET PO SCH (09:31)
[2022-06-10] MEDS: DOCUSATE SODIUM 250MG CAPSULE PO PRN (09:32)
[2022-06-10] MEDS: FAMOTIDINE 20MG TABLET PO SCH ×2 (09:32→20:48)
[2022-06-10] MEDS: RIFAXIMIN 550 MG TABLET PO SCH ×2 (09:32→20:48)
[2022-06-10 12:00] VITALS: BP 114/78
[2022-06-10] MEDS: GABAPENTIN 300MG CAPSULE PO SCH ×3 (12:40→19:28)
[2022-06-10 16:00] VITALS: BP 112/76
[2022-06-10 17:48] LABS: BASOPHILS % 0.7 % (0.0-2.0); EOSINOPHILS % 1.1 % (0.0-5.0); HEMATOCRIT. 29.8 % (36.0-48.0); HEMOGLOBIN. 9.1 g/dL (12.0-16.0); LYMPHOCYTES % 23.9 % (20.0-50.0); MEAN CORPUSCULAR HEMOGLOBIN 33.9 pg (28.0-32.0); MEAN CORPUSCULAR VOLUME 111.1 fL (81.0-99.0); MEAN PLATELET VOLUME 8.7 fl (7.4-10.4); MONOCYTES % 10.2 % (2.0-8.0); NEUTROPHILS % 64.1 % (40.0-76.0); PLATELET 159 x1000/uL (130-400); RED BLOOD CELL COUNT 2.68 mill/uL (4.2-5.4); RED CELL DISTRIBUTION WIDTH 20.3 % (11.6-14.6)
[2022-06-10 18:06] LABS: CHLORIDE 116 mEq/L (98-107)
[2022-06-10 20:00] VITALS: BP 108/72
[2022-06-10] MEDS: MUPIROCIN 2% OINT 22GM TOP SCH (20:48)
[2022-06-10] MEDS: TRAZODONE HCL 50MG TABLET PO SCH (20:48)
[2022-06-10] MEDS: SULFAMETHOXAZOLE/TRIMETHOPRIM 800/160MG TABLET PO SCH (20:48)
[2022-06-10] MEDS ORDERED: MUPIROCIN 2% OINT 22GM NS SCH (21:00)
[2022-06-11] VITALS: BP 105/72
[2022-06-11 02:13] LABS: HEMATOCRIT 26.5 % (36.0-48.0); HEMOGLOBIN 8.5 g/dL (12.0-16.0)
[2022-06-11 04:00] VITALS: BP 116/84
[2022-06-11] MEDS: ONDANSETRON HCL 4MG/2ML INJ IV PRN ×3 (05:24→20:24)
[2022-06-11 08:00] VITALS: BP 112/77
[2022-06-11 08:37] LABS: BASOPHILS % 0.8 % (0.0-2.0); EOSINOPHILS % 1.2 % (0.0-5.0); HEMOGLOBIN. 8.7 g/dL (12.0-16.0); LYMPHOCYTES % 19.7 % (20.0-50.0); MEAN CORPUSCULAR HEMOGLOBIN 34.5 pg (28.0-32.0); MEAN CORPUSCULAR VOLUME 107.2 fL (81.0-99.0); MEAN PLATELET VOLUME 8.7 fl (7.4-10.4); MONOCYTES % 9.9 % (2.0-8.0); NEUTROPHILS % 68.4 % (40.0-76.0); PLATELET 182 x1000/uL (130-400); RED BLOOD CELL COUNT 2.52 mill/uL (4.2-5.4); RED CELL DISTRIBUTION WIDTH 19.3 % (11.6-14.6)
[2022-06-11 09:18] LABS: CHLORIDE 114 mEq/L (98-107)
[2022-06-11] MEDS: DULOXETINE HCL 20MG DR CAPSULE PO SCH (10:26)
[2022-06-11] MEDS: LACTULOSE 20G/30ML UDC PO SCH (10:26)
[2022-06-11] MEDS: RIFAXIMIN 550 MG TABLET PO SCH ×2 (10:26→20:27)
[2022-06-11] MEDS: FAMOTIDINE 20MG TABLET PO SCH ×2 (10:26→20:27)
[2022-06-11] MEDS: HYDROCODONE/ACETAMINOPHEN 10/325MG TABLET PO PRN ×2 (10:27→20:24)
[2022-06-11] MEDS: FOLIC ACID 1MG TABLET PO SCH (10:40)
[2022-06-11] MEDS: GABAPENTIN 300MG CAPSULE PO SCH ×3 (10:41→20:01)
[2022-06-11] MEDS: SULFAMETHOXAZOLE/TRIMETHOPRIM 800/160MG TABLET PO SCH ×2 (10:41→20:28)
[2022-06-11] MEDS: MUPIROCIN 2% OINT 22GM TOP SCH ×2 (10:41→20:28)
[2022-06-11 12:00] VITALS: BP 119/80
[2022-06-11] MEDS: HEMORRHOIDAL SUPP PR SCH ×2 (12:00→20:45)
[2022-06-11 16:00] VITALS: BP 110/78
[2022-06-11 16:42] LABS: HEMATOCRIT 30.3 % (36.0-48.0); HEMOGLOBIN 9.7 g/dL (12.0-16.0)
[2022-06-11] MEDS: TRAZODONE HCL 50MG TABLET PO SCH (20:27)
[2022-06-11 22:28] VITALS: BP 124/90
[2022-06-12] VITALS: BP 116/81
[2022-06-12] MEDS: HYDROCODONE/ACETAMINOPHEN 10/325MG TABLET PO PRN ×3 (00:48→15:12)
[2022-06-12 04:00] VITALS: BP 112/77
[2022-06-12 08:00] VITALS: BP 104/66
[2022-06-12] MEDS: LACTULOSE 20G/30ML UDC PO SCH (10:38)
[2022-06-12] MEDS: DULOXETINE HCL 20MG DR CAPSULE PO SCH ×2 (10:38→18:13)
[2022-06-12] MEDS: FOLIC ACID 1MG TABLET PO SCH (10:39)
[2022-06-12] MEDS: HEMORRHOIDAL SUPP PR SCH ×2 (10:39→20:38)
[2022-06-12] MEDS: SULFAMETHOXAZOLE/TRIMETHOPRIM 800/160MG TABLET PO SCH ×2 (10:39→20:33)
[2022-06-12] MEDS: FAMOTIDINE 20MG TABLET PO SCH ×2 (10:39→20:33)
[2022-06-12] MEDS: GABAPENTIN 300MG CAPSULE PO SCH ×3 (10:39→18:13)
[2022-06-12] MEDS: MUPIROCIN 2% OINT 22GM TOP SCH ×2 (10:40→20:34)
[2022-06-12 12:00] VITALS: BP 112/62
[2022-06-12 16:00] VITALS: BP 109/62
[2022-06-12 20:00] VITALS: BP 102/71
[2022-06-12] MEDS: ONDANSETRON HCL 4MG/2ML INJ IV PRN (20:34)
[2022-06-13] VITALS: BP 117/79
[2022-06-13 04:00] VITALS: BP 103/66
[2022-06-13 07:54] VITALS: BP 112/79
[2022-06-13] MEDS: HEMORRHOIDAL SUPP PR SCH ×2 (09:00→21:04)
[2022-06-13] MEDS: LACTULOSE 20G/30ML UDC PO SCH ×2 (10:53→17:32)
[2022-06-13] MEDS: GABAPENTIN 300MG CAPSULE PO SCH ×3 (10:54→17:32)
[2022-06-13] MEDS: DULOXETINE HCL 20MG DR CAPSULE PO SCH ×2 (10:54→17:32)
[2022-06-13] MEDS: FOLIC ACID 1MG TABLET PO SCH (10:54)
[2022-06-13] MEDS: FAMOTIDINE 20MG TABLET PO SCH ×2 (10:54→21:04)
[2022-06-13] MEDS: SULFAMETHOXAZOLE/TRIMETHOPRIM 800/160MG TABLET PO SCH ×2 (10:54→21:03)
[2022-06-13] MEDS: ONDANSETRON HCL 4MG/2ML INJ IV PRN ×2 (11:10→21:34)
[2022-06-13] MEDS: HYDROCODONE/ACETAMINOPHEN 10/325MG TABLET PO PRN ×2 (11:10→21:34)
[2022-06-13] MEDS: MUPIROCIN 2% OINT 22GM TOP SCH ×2 (11:23→21:04)
[2022-06-13 11:49] VITALS: BP 121/79
[2022-06-13] MEDS ORDERED: MAGNESIUM/ALUMINUM HYDROXIDE/SIMETHICONE 30ML UDC PO NR (12:30)
[2022-06-13] MEDS ORDERED: MAGNESIUM/ALUMINUM HYDROXIDE/SIMETHICONE 30ML UDC PO PRN (12:30)
[2022-06-13] MEDS: RIFAXIMIN 550 MG TABLET PO SCH ×2 (12:54→21:03)
[2022-06-13 16:06] VITALS: BP 105/63
[2022-06-13 20:00] VITALS: BP 124/76
[2022-06-14 07:22] LABS: BASOPHILS % 0.8 % (0.0-2.0); EOSINOPHILS % 0.8 % (0.0-5.0); HEMATOCRIT. 29.8 % (36.0-48.0); HEMOGLOBIN. 9.7 g/dL (12.0-16.0); LYMPHOCYTES % 20.1 % (20.0-50.0); MEAN CORPUSCULAR HEMOGLOBIN 33.9 pg (28.0-32.0); MEAN CORPUSCULAR VOLUME 104.2 fL (81.0-99.0); MEAN PLATELET VOLUME 8.9 fl (7.4-10.4); MONOCYTES % 7.2 % (2.0-8.0); NEUTROPHILS % 71.1 % (40.0-76.0); PLATELET 192 x1000/uL (130-400); RED BLOOD CELL COUNT 2.86 mill/uL (4.2-5.4); RED CELL DISTRIBUTION WIDTH 18.5 % (11.6-14.6)
[2022-06-14 07:54] VITALS: BP 101/69
[2022-06-14 08:28] LABS: CHLORIDE 114 mEq/L (98-107)
[2022-06-14] MEDS: HEMORRHOIDAL SUPP PR SCH ×2 (09:00→20:47)
[2022-06-14] MEDS: RIFAXIMIN 550 MG TABLET PO SCH ×2 (09:35→20:47)
[2022-06-14] MEDS: DIPHENHYDRAMINE 25MG CAPSULE PO PRN (09:35)
[2022-06-14] MEDS: ONDANSETRON HCL 4MG/2ML INJ IV PRN ×2 (09:35→16:30)
[2022-06-14] MEDS: FAMOTIDINE 20MG TABLET PO SCH ×2 (09:35→20:47)
[2022-06-14] MEDS: FOLIC ACID 1MG TABLET PO SCH (09:35)
[2022-06-14] MEDS: DULOXETINE HCL 20MG DR CAPSULE PO SCH ×2 (09:35→16:50)
[2022-06-14] MEDS: SULFAMETHOXAZOLE/TRIMETHOPRIM 800/160MG TABLET PO SCH ×2 (09:35→20:47)
[2022-06-14] MEDS: GABAPENTIN 300MG CAPSULE PO SCH ×3 (09:35→16:50)
[2022-06-14] MEDS: LACTULOSE 20G/30ML UDC PO SCH (09:36)
[2022-06-14] MEDS: MUPIROCIN 2% OINT 22GM TOP SCH ×2 (09:37→20:48)
[2022-06-14 11:31] VITALS: BP 108/72
[2022-06-14 14:08] LABS: 25-HYDROXY VITAMIN D3 10 ng/mL (.)
[2022-06-14] MEDS ORDERED: ERGOCALCIFEROL 50000UNITS CAPSULE PO SCH (15:30)
[2022-06-14 16:04] VITALS: BP 105/79
[2022-06-14 20:00] VITALS: BP 122/75
[2022-06-15] VITALS: BP 112/78
[2022-06-15] MEDS: ONDANSETRON HCL 4MG/2ML INJ IV PRN ×2 (00:37→14:41)
[2022-06-15 04:00] VITALS: BP 116/71
[2022-06-15 08:00] VITALS: BP 129/86
[2022-06-15 08:26] LABS: BASOPHILS % 0.9 % (0.0-2.0); EOSINOPHILS % 0.8 % (0.0-5.0); HEMATOCRIT. 28.9 % (36.0-48.0); HEMOGLOBIN. 9.4 g/dL (12.0-16.0); LYMPHOCYTES % 20.5 % (20.0-50.0); MEAN CORPUSCULAR HEMOGLOBIN 34.4 pg (28.0-32.0); MEAN CORPUSCULAR VOLUME 105.9 fL (81.0-99.0); MEAN PLATELET VOLUME 8.6 fl (7.4-10.4); MONOCYTES % 6.7 % (2.0-8.0); NEUTROPHILS % 71.1 % (40.0-76.0); PLATELET 214 x1000/uL (130-400); RED BLOOD CELL COUNT 2.73 mill/uL (4.2-5.4); RED CELL DISTRIBUTION WIDTH 18.1 % (11.6-14.6)
[2022-06-15 08:41] LABS: CHLORIDE 115 mEq/L (98-107)
[2022-06-15] MEDS: LACTULOSE 20G/30ML UDC PO SCH (09:23)
[2022-06-15] MEDS: FAMOTIDINE 20MG TABLET PO SCH ×2 (09:23→21:08)
[2022-06-15] MEDS: GABAPENTIN 300MG CAPSULE PO SCH ×3 (09:24→17:34)
[2022-06-15] MEDS: DULOXETINE HCL 20MG DR CAPSULE PO SCH ×2 (09:24→17:34)
[2022-06-15] MEDS: FOLIC ACID 1MG TABLET PO SCH (09:24)
[2022-06-15] MEDS: RIFAXIMIN 550 MG TABLET PO SCH ×2 (09:24→21:08)
[2022-06-15] MEDS: HEMORRHOIDAL SUPP PR SCH ×2 (09:25→21:08)
[2022-06-15] MEDS: SULFAMETHOXAZOLE/TRIMETHOPRIM 800/160MG TABLET PO SCH ×2 (09:25→21:08)
[2022-06-15 12:00] VITALS: BP 117/79
[2022-06-15 16:00] VITALS: BP 123/68
[2022-06-15 20:00] VITALS: BP 110/65
[2022-06-16] VITALS: BP 109/70
[2022-06-16] MEDS: ONDANSETRON HCL 4MG/2ML INJ IV PRN ×2 (03:36→09:58)
[2022-06-16] MEDS: DIPHENHYDRAMINE 25MG CAPSULE PO PRN ×2 (03:36→09:58)
[2022-06-16 04:00] VITALS: BP 96/58
[2022-06-16 06:30] LABS: BASOPHILS % 0.7 % (0.0-2.0); EOSINOPHILS % 0.9 % (0.0-5.0); HEMATOCRIT. 27.4 % (36.0-48.0); HEMOGLOBIN. 8.9 g/dL (12.0-16.0); LYMPHOCYTES % 16.4 % (20.0-50.0); MEAN CORPUSCULAR HEMOGLOBIN 35.2 pg (28.0-32.0); MEAN CORPUSCULAR VOLUME 107.8 fL (81.0-99.0); MEAN PLATELET VOLUME 8.6 fl (7.4-10.4); MONOCYTES % 7.8 % (2.0-8.0); NEUTROPHILS % 74.2 % (40.0-76.0); PLATELET 228 x1000/uL (130-400); RED BLOOD CELL COUNT 2.54 mill/uL (4.2-5.4); RED CELL DISTRIBUTION WIDTH 17.5 % (11.6-14.6)
[2022-06-16 07:05] LABS: CHLORIDE 116 mEq/L (98-107)
[2022-06-16 08:00] VITALS: BP 129/63
[2022-06-16] MEDS: HEMORRHOIDAL SUPP PR SCH (09:00)
[2022-06-16] MEDS: FAMOTIDINE 20MG TABLET PO SCH (09:56)
[2022-06-16] MEDS: FOLIC ACID 1MG TABLET PO SCH (09:56)
[2022-06-16] MEDS: GABAPENTIN 300MG CAPSULE PO SCH ×2 (09:56→13:20)
[2022-06-16] MEDS: DULOXETINE HCL 20MG DR CAPSULE PO SCH (09:56)
[2022-06-16] MEDS: RIFAXIMIN 550 MG TABLET PO SCH (09:58)
[2022-06-16] MEDS: LACTULOSE 20G/30ML UDC PO SCH (09:58)
[2022-06-16 12:14] VITALS: BP 120/62
[2022-06-16] MEDS ORDERED: ALBU6.7H3 INH (13:03)
[2022-06-16] MEDS ORDERED: NITR-87 MT (13:03)
[2022-06-16 14:41] VITALS: BP 125/72
== END 2022-06-16 16:58 | disposition home health service (06) | DRG 243 ==
LOC: ER 16:09 → MICUSO 22:48 → 6EST 06-01 01:38
PROVIDERS: ADMIT Internal Medicine; ATTEND Internal Medicine
PROC: 02HV33Z Insertion of Infusion Device into Superior Vena Cava, Percutaneous Approach (ICD-10-PCS; 2022-06-05)
PROC: B548ZZA Ultrasonography of Superior Vena Cava, Guidance (ICD-10-PCS; 2022-06-05)
PROC: 30233N1 Transfusion of Nonautologous Red Blood Cells into Peripheral Vein, Percutaneous Approach (ICD-10-PCS; 2022-06-07)
PROC: 0DB78ZX Excision of Stomach, Pylorus, Via Natural or Artificial Opening Endoscopic, Diagnostic (ICD-10-PCS; 2022-06-08)
PROC: 0JBF0ZZ Excision of Left Upper Arm Subcutaneous Tissue and Fascia, Open Approach (ICD-10-PCS; principal; 2022-06-10)
DX: K21.9 Gastro-esophageal reflux disease without esophagitis (principal); G62.81 Critical illness polyneuropathy; G82.50 Quadriplegia, unspecified; E44.0 Moderate protein-calorie malnutrition; K29.20 Alcoholic gastritis without bleeding; G93.41 Metabolic encephalopathy; D63.8 Anemia in other chronic diseases classified elsewhere; J45.909 Unspecified asthma, uncomplicated; Z99.3 Dependence on wheelchair; F31.9 Bipolar disorder, unspecified; F17.210 Nicotine dependence, cigarettes, uncomplicated; K57.30 Diverticulosis of large intestine without perforation or abscess without bleeding; D72.821 Monocytosis (symptomatic); E53.8 Deficiency of other specified B group vitamins; E55.9 Vitamin D deficiency, unspecified; E87.6 Hypokalemia; F10.10 Alcohol abuse, uncomplicated; R53.81 Other malaise; R26.89 Other abnormalities of gait and mobility; D75.89 Other specified diseases of blood and blood-forming organs; K44.9 Diaphragmatic hernia without obstruction or gangrene; D53.9 Nutritional anemia, unspecified; L03.112 Cellulitis of left axilla; F99 Mental disorder, not otherwise specified; Z60.2 Problems related to living alone; K70.9 Alcoholic liver disease, unspecified; Z20.822 Contact with and (suspected) exposure to COVID-19; K74.60 Unspecified cirrhosis of liver; K76.0 Fatty (change of) liver, not elsewhere classified; L02.412 Cutaneous abscess of left axilla; Z59.00 Homelessness unspecified; Z79.899 Other long term (current) drug therapy; Z88.0 Allergy status to penicillin; Z91.040 Latex allergy status; Z71.6 Tobacco abuse counseling; Z68.23 Body mass index [BMI] 23.0-23.9, adult
CPT/HCPCS: 36415; 36573; 71045; 74018; 74176; 76700; 80048; 80053; 80076; 80305; 81003; 82105; 82140; 82150; 82248; 82270; 82306; 82550; 82607; 82728; 82746; 83540; 83550; 83735; 84443; 84703; 85014; 85018; 85025; 85044; 86301; 86705; 86709; 86803; 86850; 86900; 86920; 87070; 87077; 87186; 87340; 87426; 88305; 97110; 97112; 97116; 97162; 97166; 97530; 99285; C1725; C1893; J0696; J2405; J2704; J3480; J7060; P9016; Q0163